=== PATIENT | male | born 1950 | race American Indian/Alaskan Native ===

== ENCOUNTER 2017-08-28 14:05 | Emergency (ER) | payer BC, MEDICARE ==
[2017-08-28 14:11] VITALS: BP 133/75; PULSE 75; RESP 18; TEMP 98.2; O2SAT 97
[2017-08-28 14:16] VITALS: BMI 27.3
--- NOTE | 2017-08-28 14:35 | ED PDOC ---
Arrival/HPI - General Chief Complaint: Trauma Time Seen by Provider: 08/28/17 14:21 Historian: Patient EM Caveat: Acuity of Condition - History of Present Illness Narrative History of Present Illness (Text): 08/28/17 14:31 Pt is a 66 yr old male with past medical history of seizures, taking Lamictal BID, presents tot the ED for a trip and fall injury earlier today whereby he hit his head, sustaining a cut above the right eyebrow. Denies LOC, seizure activity, nausea, vomiting, headache, neck or back pain, shortness of breath, limb pain, numbness or motor dysfunction, or any other complaints at this time. 08/28/17 14:35 Time/Duration: Prior to Arrival Symptom Onset: Sudden Symptom Course: Unchanged Quality: Aching Severity Level: 3 Activities at Onset: Light Context: Street Past Medical History - Provider Review Nursing Documentation Reviewed: Yes - Travel History Have you recently traveled outside [place] w/in the past 3 mons?: No - Past History Past History: No Previous - Infectious Disease Hx of Infectious Diseases: None - Tetanus Immunization Tetanus Immunization: Unknown - Cardiac Hx Hypertension: Yes - Pulmonary Hx Respiratory Disorders: No - Neurological Hx Seizures: Yes - HEENT Hx HEENT Disorder: No - Renal Hx Renal Disorder: No - Endocrine/Metabolic Hx Endocrine Disorders: No - Hematological/Oncological Hx Blood Disorders: No - Integumentary Hx Dermatological Disorder: No - Musculoskeletal/Rheumatological Hx Falls: No - Gastrointestinal Hx Gastrointestinal Disorders: No - Genitourinary/Gynecological Hx Genitourinary Disorders: No - Psychiatric Hx Psychophysiologic Disorder: No Hx Substance Use: No - Surgical History Hx Musculoskeletal Surgery: Yes (back surgery and ankle surgery) - Anesthesia Hx Anesthesia: Yes Hx Anesthesia Reactions: No Hx Malignant Hyperthermia: No - Suicidal Assessment Feels Threatened In Home Enviroment: No Family/Social History - Physician Review Nursing Documentation Reviewed: Yes Family/Social History: Unknown Family HX Smoking Status: Never Smoked Hx Alcohol Use: No Hx Substance Use: No Hx Substance Use Treatment: No Allergies/Home Meds Allergies/Adverse Reactions: Allergies No Known Allergies Allergy (Verified 08/28/17 14:20) Home Medications: Home Meds Medication Instructions Recorded Confirmed Aspirin 81 mg PO DAILY 07/24/14 08/28/17 Lamotrigine [Lamictal] 25 mg PO DAILY 07/24/14 08/28/17 Ramipril [Altace] 10 mg PO DAILY 07/24/14 08/28/17 Review of Systems - Review of Systems Systems not reviewed;Unavailable: Acuity of Condition Constitutional: Normal Eyes: Normal ENT: Normal Respiratory: Normal Cardiovascular: Normal Gastrointestinal: Normal Genitourinary Male: Normal Musculoskeletal: Normal Skin: Normal, Laceration (face), Other (scrapes on cheek and nose) Neurological: Normal. absent: Headache, Dizziness, Focal Weakness, Gait Changes , Speech Changes, SC, Facial Droop, DE, Disequilibrium, SE, Seizure, Other Endocrine: Normal Hemo/Lymphatic: Normal Psychiatric: Normal Physical Exam Vital Signs Reviewed: Yes Vital Signs Temp Pulse Resp BP Pulse Ox 08/28/17 14:10 98.2 F 75 18 133/75 97 Temperature: Afebrile Blood Pressure: Normal Pulse: Regular Respiratory Rate: Normal Appearance: Positive for: Well-Appearing, Non-Toxic, Comfortable Pain Distress: Mild Mental Status: Positive for: Alert and Oriented X 3 - Systems Exam Head: Present: Normocephalic, Laceration (right supraorbital above the brow, 2.5 cm in length, clean edges). No: Tenderness, Contusion Pupils: Present: PERRL Extroacular Muscles: Present: EOMI Conjunctiva: Present: Normal Mouth: Present: Moist Mucous Membranes Neck: Present: Normal Range of Motion Respiratory/Chest: Present: Clear to Auscultation, Good Air Exchange. No: Respiratory Distress, Accessory Muscle Use Cardiovascular: Present: Regular Rate and Rhythm, Normal S1, S2. No: Murmurs Back: Present: Normal Inspection Upper Extremity: Present: Normal Inspection. No: Cyanosis, Edema Lower Extremity: Present: Normal Inspection. No: Edema Neurological: Present: GCS=15, CN II-XII Intact, Speech Normal Skin: Present: Warm, Dry, Normal Color. No: Rashes Psychiatric: Present: Alert, Oriented x 3, Normal Insight, Normal Concentration Medical Decision Making ED Course and Treatment: 08/28/17 14:35 Impression Pt is a 66 yr old male with past medical history of seizures, taking Lamictal BID, presents tot the ED for a trip and fall injury earlier today whereby he hit his head, sustaining a cut above the right eyebrow. On exam, pt has a laceration to the right brow, 2.5 cm in length. Good motor and sensory function of cranial nerves (CN II to IX) assessed; no other findings Plan prep, irrigate and suture assess and dispo Progress Note Performed by the emergency provider Location: Right brow Length: 2.5 cm Description: "clean wound edges","no foreign bodies" Distal CMS: ~Normal.~ No deficits.~ Neurovascularly intact. Anesthesia: Lidocaine 1% 1cc Preparation: The wound was cleaned with NS. The area was prepped and draped in the usual sterile fashion.~ Exploration: ~ The wound was explored and no foreign bodies were found. Procedure: The wound was closed with 6.0 nylon.~ There was good approximation.~ In total, 3 were used. Post-Procedure: ~Good closure and hemostasis.~ The patient tolerated the procedure well and there were no complications.~ CSM remains intact.~ Post procedure dressing applied. DW pt wound care and return in 5 days for suture removal VSS - Medication Orders Current Medication Orders: Discontinued Medications Tetanus/Reduced Diphtheria/Acell Pertussis (Boostrix Vaccine Inj) 0.5 ml IM .ONCE ONE Stop: 08/28/17 14:41 Last Admin: 08/28/17 15:16 Dose: 0.5 ml [facility] Immunization Data Document 08/28/17 15:16 [place] (Rec: 08/28/17 15:16 [place] [id number]) Immunization Data Vaccine Information Sheet Given Yes Immunization Registry Document 08/28/17 15:16 [place] (Rec: 08/28/17 15:16 [place] [id number]) Immunization Registry Consent Date 08/28/17 Disposition/Present on Arrival - Present on Arrival Any Indicators Present on Arrival: Yes History of DVT/PE: No History of Uncontrolled Diabetes: No Urinary Catheter: No History of Decub. Ulcer: No History Surgical Site Infection Following: None - Disposition Have Diagnosis and Disposition been Completed?: Yes Diagnosis: Laceration, Abrasion head Disposition: HOME/ ROUTINE Disposition Time: 15:21 Patient Plan: Discharge Condition: GOOD Discharge Instructions (ExitCare): Wound Care (DC), Laceration Repair With Stitches (DC) Additional Instructions: Placido, thank you for letting us take care of you today. Your provider was KRISTINA Joe. You were treated for Laceration and abrasions of the face . The emergency medical care you received today was directed at your acute symptoms. If you were prescribed any medication, please fill it and take as directed. It may take several days for your symptoms to resolve. Return to the Emergency Department if your symptoms worsen, do not improve, or if you have any other problems PLEASE RETURN to the EMERGENCY DEPARTMENT IN 5 DAYS TO HAVE THE SUTURES REMOVED AND THE WOUND CHECKED. Please contact your doctor or call one of the physicians/clinics you have been referred to that are listed on the Patient Visit Information form that is included in your discharge packet. Bring any paperwork you were given at discharge with you along with any medications you are taking to your follow up visit. Our treatment cannot replace ongoing medical care by a primary care provider (PCP) outside of the emergency department. Thank you for allowing the [facility] team to be part of your care today. Referrals: Eli Pickering MD [Primary Care Provider] - Follow up with primary Forms: [employer] (Gambian)
[2017-08-28] MEDS ORDERED: TDAP Vaccine 0.5 mL Syr IM ONE (14:40)
== END 2017-08-28 15:42 | disposition home or self-care (01) ==
LOC: ED 14:05
DX: S01.111A Laceration without foreign body of right eyelid and periocular area, initial encounter (principal); W01.0XXA Fall on same level from slipping, tripping and stumbling without subsequent striking against object, initial encounter; Y92.89 Other specified places as the place of occurrence of the external cause; Z23 Encounter for immunization

== ENCOUNTER 2018-04-08 23:36 | Observation (INO) | payer MEDICARE ==
[2018-04-08 23:47] VITALS: BMI 27.7
[2018-04-08] MEDS ORDERED: Sodium Chloride 0.9% 1,000 ML IV STA (23:58)
--- NOTE | 2018-04-09 00:04 | ED PDOC ---
Arrival/HPI - General Chief Complaint: Syncope Time Seen by Provider: 04/08/18 23:39 Historian: Patient, EMS - History of Present Illness Narrative History of Present Illness (Text): 04/08/18 23:58 67 year old male, whose past medical history includes seizures, taking Lamictal BID, presents to the emergency department for evaluation, status post syncopal episode. Patient states he felt some stomach pain and thought he needed to go to the bathroom. Patient states upon arrival at the toilet, he was feeling weak and dizzy, and fell, hitting the toilet set on his cheek. Patient states he couldn't get up on his own, and his called EMS. Patient states after the fall he released his bowels in the form of diarrhea. Patient states he has been taking his Lamictal and has been seizure free for 3 years. Patient denies any chest pain, shortness of breath, fevers, chills, back pain, neck pain, or any other complaints. Time/Duration: Prior to Arrival Symptom Onset: Sudden Context: Home Past Medical History - Provider Review Nursing Documentation Reviewed: Yes - Past History Past History: No Previous - Infectious Disease Hx of Infectious Diseases: None - Tetanus Immunization Tetanus Immunization: Unknown - Cardiac Hx Hypertension: Yes - Pulmonary Hx Respiratory Disorders: No - Neurological Hx Seizures: Yes - HEENT Hx HEENT Disorder: No - Renal Hx Renal Disorder: No - Endocrine/Metabolic Hx Endocrine Disorders: No - Hematological/Oncological Hx Blood Disorders: No - Integumentary Hx Dermatological Disorder: No - Musculoskeletal/Rheumatological Hx Falls: No - Gastrointestinal Hx Gastrointestinal Disorders: No - Genitourinary/Gynecological Hx Genitourinary Disorders: No - Psychiatric Hx Psychophysiologic Disorder: No Hx Substance Use: No - Surgical History Hx Musculoskeletal Surgery: Yes (back surgery and ankle surgery) - Anesthesia Hx Anesthesia: Yes Hx Anesthesia Reactions: No Hx Malignant Hyperthermia: No - Suicidal Assessment Feels Threatened In Home Enviroment: No Family/Social History - Physician Review Nursing Documentation Reviewed: Yes Family/Social History: No Known Family HX Smoking Status: Never Smoked Hx Alcohol Use: No Hx Substance Use: No Hx Substance Use Treatment: No Allergies/Home Meds Allergies/Adverse Reactions: Allergies No Known Allergies Allergy (Verified 08/28/17 14:20) Home Medications: Home Meds Medication Instructions Recorded Confirmed Aspirin 81 mg PO DAILY 07/24/14 08/28/17 Lamotrigine [Lamictal] 25 mg PO DAILY 07/24/14 08/28/17 Ramipril [Altace] 10 mg PO DAILY 07/24/14 08/28/17 Review of Systems - Physician Review All systems were reviewed & negative as marked: Yes - Review of Systems Constitutional: absent: Fevers, Night Sweats Respiratory: absent: SOB Cardiovascular: absent: Chest Pain Gastrointestinal: Abdominal Pain, Diarrhea (post-fall), Nausea (prior to fall). absent: Vomiting Musculoskeletal: absent: Back Pain, Neck Pain Neurological: Dizziness (prior to fall) Physical Exam Vital Signs Reviewed: Yes Vital Signs Temp Pulse Resp BP Pulse Ox 04/08/18 23:46 97.6 F 72 18 119/61 98 Temperature: Afebrile Blood Pressure: Normal Pulse: Regular Respiratory Rate: Normal Appearance: Positive for: Well-Appearing, Non-Toxic, Comfortable Pain Distress: None Mental Status: Positive for: Alert and Oriented X 3 - Systems Exam Head: Present: Atraumatic, Normocephalic Pupils: Present: PERRL Extroacular Muscles: Present: EOMI Conjunctiva: Present: Normal Mouth: Present: Moist Mucous Membranes Neck: Present: Normal Range of Motion Respiratory/Chest: Present: Clear to Auscultation, Good Air Exchange. No: Respiratory Distress, Accessory Muscle Use Cardiovascular: Present: Regular Rate and Rhythm, Normal S1, S2. No: Murmurs Abdomen: No: Tenderness, Distention, Peritoneal Signs Back: Present: Normal Inspection Upper Extremity: Present: Normal Inspection. No: Cyanosis, Edema Lower Extremity: Present: Normal Inspection. No: Edema Neurological: Present: Speech Normal Skin: Present: Warm, Dry, Normal Color. No: Rashes Psychiatric: Present: Alert, Oriented x 3, Normal Insight, Normal Concentration Medical Decision Making ED Course and Treatment: 04/09/18 00:06 Impression: 67 year old male presents for evaluation status post dizziness and fall. Plan: -- CT Head -- Labs -- Urinalysis -- Reassess and disposition Prior Visits: Notes and results from previous visits were reviewed. Progress Notes: 04/09/18 01:30 Labs reviewed with slight anemia noted. CTH reveals large fluid cysts filled with CSF present within the cerebral parenchyma. Call placed to Dr. Myers(house physician). 04/09/18 01:42 After discussion of patient and review of chart, patient has seen Dr. Avalos(PCP) in the past. Spoke to Dr. Avalos who accepts patient onto his service and requests Dr. Marino Young(neurology) to be consulted on the case. - RAD Interpretation Narrative RAD Interpretations (Text): 04/09/18 01:12 CT Head CLINICAL HISTORY: Syncope and seizure. TECHNIQUE: Multiple axial CT images were obtained through the brain without IV contrast material. COMMENTS: Bilateral superior parietal extra-axial dilated CSF spaces/CSF containing cysts. Associated with focal cortical atrophy. There is normal configuration of sella turcica. There is no mass effect or midline shift. There is no evidence of hematoma formation. No hydrocephalus is present. The ventricles are symmetrical. No abnormal calcifications are present. There is diffuse age-appropriate cerebellar and cerebral atrophy with proportionally dilated ventricles and cortical sulci. There are bilateral periventricular and subcortical white matter hypolucencies compatible with mild chronic microvascular disease. Otherwise, no significant focal abnormalities are seen either in the posterior fossa or supratentorial compartment. Moderate chronic mucosal inflammatory changes of the maxillary, sphenoid sinuses and ethmoid air cells. Minimal secretions in the left renal sinus. IMPRESSION: 1. Age-appropriate cerebellar and cerebral atrophy. 2. Mild chronic microvascular disease. Bilateral superior parietal extra-axial dilated CSF spaces/CSF containing cysts. Associated with focal cortical atrophy. Chronic findings. 3. No evidence of acute intracranial pathology. Management Manager: Radiologist - Scribe Statement The provider has reviewed the documentation as recorded by the Virginia Godfrey Provider Scribe Attestation: All medical record entries made by the Scribe were at my direction and personally dictated by me. I have reviewed the chart and agree that the record accurately reflects my personal performance of the history, physical exam, medical decision making, and the department course for this patient. I have also personally directed, reviewed, and agree with the discharge instructions and disposition. Disposition/Present on Arrival - Present on Arrival Any Indicators Present on Arrival: No History of DVT/PE: No History of Uncontrolled Diabetes: No Urinary Catheter: No History of Decub. Ulcer: No History Surgical Site Infection Following: None - Disposition Have Diagnosis and Disposition been Completed?: Yes Diagnosis: Syncope Disposition: HOSPITALIZED Disposition Time: 01:30 Patient Plan: Observation Condition: STABLE Discharge Instructions (ExitCare): Syncope (ED) Forms: DG[employer] (Polish)
[2018-04-09 00:32] LABS: BASO # 0.03 K/mm3 (0.0-2.0); BASO % 0.3 % (0.0-3.0); EOS # 0.4 (0.0-0.7); EOS % 4.3 % (1.5-5.0); GRAN # 5.94 (1.4-6.5); GRAN % 64.4 % (50.0-68.0); HEMOGLOBIN 12.9 g/dL (14.0-18.0); LYMPH # 2.3 (1.2-3.4); LYMPH % 25.2 % (22.0-35.0); MEAN CELL VOLUME 96.4 fl (80.0-105.0); MEAN CORPUSCULAR HEMOGLOBIN 31.2 pg (25.0-35.0); MEAN CORPUSCULAR HGB CONC 32.4 g/dl (31.0-37.0); MEAN PLATELET VOLUME 8.8 fl (7.0-11.0); MONO # 0.5 (0.1-0.6); MONO % 5.8 % (1.0-6.0); RBC 4.13 10^6/uL (3.5-6.1); RED CELL DISTRIBUTION WIDTH 12.3 % (11.5-14.5); WHITE BLOOD COUNT 9.2 10^3/uL (4.5-11.0)
[2018-04-09 00:43] LABS: ALB/GLOB RATIO 1.2 (1.1-1.8); ALBUMIN 4.3 g/dL (3.0-4.8); ALT/SGPT 26 U/L (7-56); AST/SGOT 28 U/L (17-59); BLOOD UREA NITROGEN 19 mg/dL (7-21); CALCIUM 9.6 mg/dL (8.4-10.5); GFR NON-AFRICAN AMERICAN > 60
[2018-04-09 02:11] LABS: URINE BILIRUBIN NEGATIVE (NEGATIVE); URINE BLOOD TRACE-INTACT (NEGATIVE); URINE GLUCOSE (UA) NEGATIVE (NEGATIVE); URINE LEUKOCYTE ESTERASE NEGATIVE Leu/uL (NEGATIVE); URINE PROTEIN TRACE mg/dL (<30 mg/dL)
[2018-04-09 02:12] LABS: URINE APPEARANCE CLEAR (CLEAR)
[2018-04-09 02:25] LABS: BARBITURATES, UR NEGATIVE (NEGATIVE); BENZODIAZEPINES, UR NEGATIVE (NEGATIVE); OPIATES, UR NEGATIVE (NEGATIVE); PHENCYCLIDINE, UR NEGATIVE (NEGATIVE)
[2018-04-09 03:12] VITALS: RESP 20
[2018-04-09] MEDS ORDERED: Influenza Vaccine 60 mcg/0.5 mL SYR (4YR UP) IM ONE (03:12)
[2018-04-09] MEDS ORDERED: Pneumococcal 23-Valent Vaccine IM ONE (03:12)
[2018-04-09 06:58] VITALS: BP 109/66; TEMP 97.9; O2SAT 97
--- NOTE | 2018-04-09 07:37 | CP.PCM.HP ---
<James Lewis - Last Filed: 04/09/18 09:52> History of Present Illness - History of Present Illness History of Present Illness: James Lewis PGY2 IM H&P Note for Dr. Daugherty cc: post-syncopal episode Mr. Nair is a 67 year old AAM with a PMH of seizure disorder on Lamictal (last seizure 3 years ago) and HTN who presents to the ED post-syncopal episode. Patient states that he was feeling nauseous and was walking into the bathroom when he felt dizzy, saw lights and passed out, hitting his jaw into the toilet seat. During his syncopal episode, he lost control of his bowels and had a diarrheal episode. His , who was home, was present at home witnessed him post-fall. There is no ED record of the 's recollection, but the patient states that he spoke with his , and that he only had LOC for a few minutes, but did not have any jerking movements but did lose control of his bowels with a diarrheal episode. The patient states that these symptoms are note similar to his symptoms prior to his seizures, which usually included eye pressure. The patient has been seizure free for 3 years and has been on an unchanged dose of lamictal for that time. He has not had any dizziness, falls or unsteady gait, but did have abdominal cramps and another episode of diarrhea. He states that he had a sandwich from [employer] yesterday and that was the only different part of his diet recently. He currently denies any chest pain, abdominal pain, nausea/vomiting, weakness, headache, changes in vision/hearing, or unsteady gait. 12-point ROS was reviewed and is otherwise unremarkable. In ED, FS is 101. BP is stable. CT Head showed b/l superior parietal extra-axial dilated CSF spaces/CSF containing cysts w/ associated focal cortical atrophy; prior chart review reveals unchanged from 2015. The CT was reviewed personally by me and is awaiting final read by AM radiologist. PMD: Dr. Pickering Neurology: Dr. Ulrich PMH: as above PSH: back and ankle surgery Meds: as per JUL, reviewed Allergies: NKDA SHx: denies tobacco, EtOH or drug use FHx: DM2 and HTN Present on Admission - Present on Admission Any Indicators Present on Admission: No Review of Systems - Review of Systems All systems: reviewed and no additional remarkable complaints except (as per HPI) Past Patient History - Infectious Disease Hx of Infectious Diseases: None - Tetanus Immunizations Tetanus Immunization: Unknown - Past Medical History & Family History Past Medical History?: Yes Past Family History: Reviewed and not pertinent - Past Social History Smoking Status: Never Smoked Alcohol: None Drugs: Denies Home Situation {Lives}: With Family - CARDIAC Hx Cardiac Disorders: Yes Hx Hypertension: Yes - PULMONARY Hx Respiratory Disorders: No - NEUROLOGICAL Hx Seizures: Yes (on lamictal; last seizure 3 years ago) - HEENT Hx HEENT Problems: No - RENAL Hx Chronic Kidney Disease: No - ENDOCRINE/METABOLIC Hx Endocrine Disorders: No - HEMATOLOGICAL/ONCOLOGICAL Hx Blood Disorders: No - INTEGUMENTARY Hx Dermatological Problems: No - MUSCULOSKELETAL/RHEUMATOLOGICAL Hx Falls: Yes - GASTROINTESTINAL Hx Gastrointestinal Disorders: No - GENITOURINARY/GYNECOLOGICAL Hx Genitourinary Disorders: No - PSYCHIATRIC Hx Psychophysiologic Disorder: No - SURGICAL HISTORY Hx Musculoskeletal Surgery: Yes (back surgery and ankle surgery) - ANESTHESIA Hx Anesthesia: Yes Hx Anesthesia Reactions: No Hx Malignant Hyperthermia: No Meds Allergies/Adverse Reactions: Allergies Allergy/AdvReac Type Severity Reaction Status Date / Time No Known Allergies Allergy Verified 08/28/17 14:20 Physical Exam - Constitutional Appears: Well, Non-toxic, No Acute Distress - Head Exam Head Exam: ATRAUMATIC, NORMAL INSPECTION, NORMOCEPHALIC - Eye Exam Eye Exam: EOMI, Normal appearance, PERRL. absent: Periorbital swelling, Periorbital tenderness - ENT Exam ENT Exam: Mucous Membranes Moist, Normal External Ear Exam, Normal Oropharynx - Neck Exam Neck exam: Positive for: Full Rom, Normal Inspection. Negative for: Tenderness - Respiratory Exam Respiratory Exam: NORMAL BREATHING PATTERN. absent: Rales, Rhonchi, Wheezes, Respiratory Distress - Cardiovascular Exam Cardiovascular Exam: RRR, +S1, +S2. absent: JVD, Systolic Murmur - GI/Abdominal Exam GI & Abdominal Exam: Normal Bowel Sounds, Soft. absent: Distended, Tenderness - Exam Exam: absent: Bladder Distension - Extremities Exam Extremities exam: Positive for: full ROM, normal inspection. Negative for: joint swelling, pedal edema, tenderness - Back Exam Back exam: NORMAL INSPECTION. absent: tenderness - Neurological Exam Neurological exam: Alert, CN II-XII Intact, Oriented x3 Additional comments: no motor sensory deficits - Psychiatric Exam Psychiatric exam: Normal Affect, Normal Mood - Skin Skin Exam: Normal Color, Warm Results - Vital Signs Recent Vital Signs: Last Vital Signs Temp 97.9 F 04/09/18 06:00 Pulse 67 04/09/18 06:00 Resp 20 04/09/18 06:00 BP 109/66 04/09/18 06:00 Pulse Ox 97 04/09/18 06:00 - Labs Result Diagrams: 04/09/18 00:05 04/09/18 00:05 Labs: Laboratory Results - last 24 hr 04/09/18 04/09/18 04/09/18 00:05 00:05 00:05 WBC 9.2 RBC 4.13 Hgb 12.9 L Hct 39.8 L MCV 96.4 MCH 31.2 MCHC 32.4 RDW 12.3 Plt Count 273 MPV 8.8 Gran % 64.4 Lymph % (Auto) 25.2 [place] % (Auto) 5.8 Eos % (Auto) 4.3 Baso % (Auto) 0.3 Gran # 5.94 Lymph # (Auto) 2.3 [place] # (Auto) 0.5 Eos # (Auto) 0.4 Baso # (Auto) 0.03 Sodium 142 Potassium 4.1 Chloride 102 Carbon Dioxide 29 Anion Gap 15 BUN 19 Creatinine 1.2 Est GFR ( Amer) > 60 Est GFR (Non-Af Amer) > 60 Random Glucose 101 Calcium 9.6 Magnesium 2.2 Total Bilirubin 0.6 AST 28 ALT 26 Alkaline Phosphatase 113 Troponin I Total Protein 7.9 Albumin 4.3 Globulin 3.6 Albumin/Globulin Ratio 1.2 Urine Color Urine Appearance Urine pH Ur Specific [place] Urine Protein Urine Glucose (UA) Urine Ketones Urine Blood Urine Nitrate Urine Bilirubin Urine Urobilinogen Ur Leukocyte Esterase Urine RBC Urine WBC Ur Epithelial Cells Urine Opiates Screen Urine Methadone Screen Ur Barbiturates Screen Ur Phencyclidine Scrn Ur Amphetamines Screen U Benzodiazepines Scrn U Oth Cocaine Metabols U Cannabinoids Screen Alcohol, Quantitative < 10 04/09/18 04/09/18 04/09/18 00:05 01:53 01:53 WBC RBC Hgb Hct MCV MCH MCHC RDW Plt Count MPV Gran % Lymph % (Auto) [place] % (Auto) Eos % (Auto) Baso % (Auto) Gran # Lymph # (Auto) [place] # (Auto) Eos # (Auto) Baso # (Auto) Sodium Potassium Chloride Carbon Dioxide Anion Gap BUN Creatinine Est GFR ( Amer) Est GFR (Non-Af Amer) Random Glucose Calcium Magnesium Total Bilirubin AST ALT Alkaline Phosphatase Troponin I < 0.01 Total Protein Albumin Globulin Albumin/Globulin Ratio Urine Color yellow Urine Appearance Clear Urine pH 6.0 Ur Specific [place] 1.025 Urine Protein Trace H Urine Glucose (UA) Negative Urine Ketones Negative Urine Blood Trace-intact H Urine Nitrate Negative Urine Bilirubin Negative Urine Urobilinogen 1.0 H Ur Leukocyte Esterase Negative Urine RBC 5 - 10 Urine WBC 2 - 5 Ur Epithelial Cells 4 - 5 Urine Opiates Screen Negative Urine Methadone Screen Negative Ur Barbiturates Screen Negative Ur Phencyclidine Scrn Negative Ur Amphetamines Screen Negative U Benzodiazepines Scrn Negative U Oth Cocaine Metabols Negative U Cannabinoids Screen Negative Alcohol, Quantitative Assessment & Plan - Assessment and Plan (Free Text) Assessment: 67 year old AAM with a PMH of seizure disorder on Lamictal (last seizure 3 years ago) and HTN who presents to the ED post-syncopal episode. Patient had seizure- like activity by loss of bowel control which could be food-related but could be from an organic cause of seizure. Syncope otherwise could be due to vasovagal episode. Patient has no history of heart disease so cardiogenic cause is unlikely. Plan: - will observe on remote telemetry unit - EKG ordered - MRI brain ordered w/o contrast - EEG ordered - Lipid panel, A1C and TSH ordered - Lamictal level ordered - PT Eval ordered - cont Lamictal home dose for now, will adjust based on level - cont ASA and Ramipril - monitor VS - Orthostatic VS ordered - Neurology consulted, recs appreciated - seizure precautions - HHD - further recs per Dr. Daugherty Case was reviewed and discussed with attending, Dr. Dat Lewis PGY2 <Dario Daugherty S - Last Filed: 04/10/18 15:07> Results - Vital Signs Recent Vital Signs: Last Vital Signs Temp 97.9 F 04/09/18 06:00 Pulse 74 04/09/18 10:00 Resp 20 04/09/18 06:00 BP 109/66 04/09/18 06:00 Pulse Ox 97 04/09/18 06:00 - Labs Result Diagrams: 04/09/18 00:05 04/09/18 00:05 Labs: Laboratory Results - last 24 hr 04/09/18 08:00 Hemoglobin A1c 4.7 Assessment & Plan - Assessment and Plan (Free Text) Plan: Pt seen and examined. I have reviewed the note of the medical leader and agree with it. I have discussed the assessment and plan with the resident. I have reviewed the patient's labs and medications. Pt with syncope. It is difficult to say if the pt had Sz. It may be caused by a vasovagal event in the bathroom. He is on Lamictal. I will get Neurology to evaluate the pt. MRI has been ordered as well as an EEG. Will await neuro evaluation. I spoke to Dr Pickering (PMD). He iwll continue with Ramipril for his HTN. He has no pain.
[2018-04-09 09:14] LABS: HDL CHOLESTEROL 38 mg/dL (29-60)
--- NOTE | 2018-04-09 09:22 | CT ---
Date of service: 04/09/2018 PROCEDURE: CT HEAD WITHOUT CONTRAST. HISTORY: syncope/seizure COMPARISON: None available. TECHNIQUE: Axial computed tomography images were obtained through the head/brain without intravenous contrast. Radiation dose: Total exam DLP = 856.86 mGy-cm. This CT exam was performed using one or more of the following dose reduction techniques: Automated exposure control, adjustment of the mA and/or kV according to patient size, and/or use of iterative reconstruction technique. FINDINGS: HEMORRHAGE: No intracranial hemorrhage. BRAIN: No mass effect or edema. No atrophy or chronic microvascular ischemic changes. 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 CALVARIUM: Unremarkable. PARANASAL SINUSES: Unremarkable as visualized. No significant inflammatory changes. MASTOID AIR CELLS: Unremarkable as visualized. No inflammatory changes. OTHER FINDINGS: None. IMPRESSION: No acute hemorrhage.
[2018-04-09 09:24] LABS: LDL CHOLESTEROL 102 mg/dL (0-129)
[2018-04-09] MEDS ORDERED: Non Formulary Medication (Aspirin [Aspirin] 81 MG) PO SCH (10:00)
[2018-04-09 10:31] VITALS: PULSE 74
--- NOTE | 2018-04-09 12:35 | CP.PCM.DIS ---
<James Lewis - Last Filed: 04/09/18 22:05> Provider - Provider Date of Admission: 04/09/18 01:43 Attending physician: Dario Daugherty MD Time Spent in preparation of Discharge (in minutes): 35 Diagnosis - Discharge Diagnosis (1) Syncope Status: Acute Hospital Course - Lab Results Lab Results: Most Recent Lab Values WBC 9.2 10^3/uL (4.5-11.0) 04/09/18 00:05 RBC 4.13 10^6/uL (3.5-6.1) 04/09/18 00:05 Hgb 12.9 g/dL (14.0-18.0) L 04/09/18 00:05 Hct 39.8 % (42.0-52.0) L 04/09/18 00:05 MCV 96.4 fl (80.0-105.0) 04/09/18 00:05 MCH 31.2 pg (25.0-35.0) 04/09/18 00:05 MCHC 32.4 g/dl (31.0-37.0) 04/09/18 00:05 RDW 12.3 % (11.5-14.5) 04/09/18 00:05 Plt Count 273 10^3/uL (120.0-450.0) 04/09/18 00:05 MPV 8.8 fl (7.0-11.0) 04/09/18 00:05 Gran % 64.4 % (50.0-68.0) 04/09/18 00:05 Lymph % (Auto) 25.2 % (22.0-35.0) 04/09/18 00:05 [place] % (Auto) 5.8 % (1.0-6.0) 04/09/18 00:05 Eos % (Auto) 4.3 % (1.5-5.0) 04/09/18 00:05 Baso % (Auto) 0.3 % (0.0-3.0) 04/09/18 00:05 Gran # 5.94 (1.4-6.5) 04/09/18 00:05 Lymph # (Auto) 2.3 (1.2-3.4) 04/09/18 00:05 [place] # (Auto) 0.5 (0.1-0.6) 04/09/18 00:05 Eos # (Auto) 0.4 (0.0-0.7) 04/09/18 00:05 Baso # (Auto) 0.03 K/mm3 (0.0-2.0) 04/09/18 00:05 Sodium 142 mmol/L (132-148) 04/09/18 00:05 Potassium 4.1 mmol/L (3.6-5.0) 04/09/18 00:05 Chloride 102 mmol/L (98-107) 04/09/18 00:05 Carbon Dioxide 29 mmol/L (21-33) 04/09/18 00:05 Anion Gap 15 (10-20) 04/09/18 00:05 BUN 19 mg/dL (7-21) 04/09/18 00:05 Creatinine 1.2 mg/dl (0.8-1.5) 04/09/18 00:05 Est GFR ( Amer) > 60 04/09/18 00:05 Est GFR (Non-Af Amer) > 60 04/09/18 00:05 POC Glucose (mg/dL) 97 mg/dL (65-110) 04/08/18 23:58 Random Glucose 101 mg/dL (70-110) 04/09/18 00:05 Calcium 9.6 mg/dL (8.4-10.5) 04/09/18 00:05 Magnesium 2.2 mg/dL (1.7-2.2) 04/09/18 00:05 Total Bilirubin 0.6 mg/dL (0.2-1.3) 04/09/18 00:05 AST 28 U/L (17-59) 04/09/18 00:05 ALT 26 U/L (7-56) 04/09/18 00:05 Alkaline Phosphatase 113 U/L (38-126) 04/09/18 00:05 Troponin I < 0.01 ng/mL 04/09/18 00:05 Total Protein 7.9 g/dL (5.8-8.3) 04/09/18 00:05 Albumin 4.3 g/dL (3.0-4.8) 04/09/18 00:05 Globulin 3.6 gm/dL 04/09/18 00:05 Albumin/Globulin Ratio 1.2 (1.1-1.8) 04/09/18 00:05 Triglycerides 34 mg/dL (35-160) L 04/09/18 08:00 Cholesterol 149 mg/dL (130-200) 04/09/18 08:00 LDL Cholesterol Direct 102 mg/dL (0-129) 04/09/18 08:00 HDL Cholesterol 38 mg/dL (29-60) 04/09/18 08:00 TSH 3rd Generation 2.43 mIU/mL (0.46-4.68) 04/09/18 08:00 Urine Color yellow (YELLOW) 04/09/18 01:53 Urine Appearance Clear (CLEAR) 04/09/18 01:53 Urine pH 6.0 (4.7-8.0) 04/09/18 01:53 Ur Specific [place] 1.025 (1.005-1.035) 04/09/18 01:53 Urine Protein Trace mg/dL (<30 mg/dL) H 04/09/18 01:53 Urine Glucose (UA) Negative mg/dL (NEGATIVE) 04/09/18 01:53 Urine Ketones Negative mg/dL (NEGATIVE) 04/09/18 01:53 Urine Blood Trace-intact (NEGATIVE) H 04/09/18 01:53 Urine Nitrate Negative (NEGATIVE) 04/09/18 01:53 Urine Bilirubin Negative (NEGATIVE) 04/09/18 01:53 Urine Urobilinogen 1.0 E.U./dL (<1 E.U./dL) H 04/09/18 01:53 Ur Leukocyte Esterase Negative Matthew/uL (NEGATIVE) 04/09/18 01:53 Urine RBC 5 - 10 /hpf (0-2) 04/09/18 01:53 Urine WBC 2 - 5 /hpf (0-6) 04/09/18 01:53 Ur Epithelial Cells 4 - 5 /hpf (0-5) 04/09/18 01:53 Urine Opiates Screen Negative (NEGATIVE) 04/09/18 01:53 Urine Methadone Screen Negative (NEGATIVE) 04/09/18 01:53 Ur Barbiturates Screen Negative (NEGATIVE) 04/09/18 01:53 Ur Phencyclidine Scrn Negative (NEGATIVE) 04/09/18 01:53 Ur Amphetamines Screen Negative (NEGATIVE) 04/09/18 01:53 U Benzodiazepines Scrn Negative (NEGATIVE) 04/09/18 01:53 U Oth Cocaine Metabols Negative (NEGATIVE) 04/09/18 01:53 U Cannabinoids Screen Negative (NEGATIVE) 04/09/18 01:53 Alcohol, Quantitative < 10 mg/dL (0-10) 04/09/18 00:05 - Hospital Course Hospital Course: 67 year old AAM with a PMH of seizure disorder on Lamictal (last seizure 3 years ago) and HTN who was admitted for observation for a post-syncopal episode. Patient states that he was feeling nauseous and was walking into the bathroom when he felt dizzy, saw lights and passed out, hitting his jaw into the toilet seat. During his syncopal episode, he lost control of his bowels and had a diarrheal episode. The patient had LOC for a few minutes and regained it without any following confusion. Patient had another episode of diarrhea in the hospital and only then felt relief from abdominal cramping, which he attributes to [employer] sandwich. 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 I confirmed Lamictal dose w/ Dr. Ulrich's office and they stated it was 150mg BID. EEG was ordered and was normal. Patient received fluids and was asymptomatic in the morning that I saw him, and felt much better. HE was ambulating without any difficult, and had no other syncopal episodes. Neurology was consulted and their impression was that it was a vasovagal syncope w/ possible syncopal convulsion. I personally spoke with Dr. Young, who recommended for the patient to continue his current Lamictal dose and follow-up with Dr. Ulrich for further workup. I spoke with the patient and his in person and explained to them the plan and they understood. Script was provided for Lamictal 150mg tabs instead of the 25mg tabs patient had for convenience. Patient will continue Lamictal 150mg BID and f/u Dr. Ulrich and PMD within 2 weeks. PT evaluated the patient and he has a wide based gait (Chronic) but otherwise ambulates well w/ RW. Patient will be discharged home. Discharge Exam - Head Exam Head Exam: ATRAUMATIC, NORMAL INSPECTION, NORMOCEPHALIC - Eye Exam Eye Exam: EOMI, Normal appearance, PERRL - ENT Exam ENT Exam: Mucous Membranes Moist, Normal Oropharynx - Neck Exam Neck exam: Full Rom, Normal Inspection - Respiratory Exam Respiratory Exam: NORMAL BREATHING PATTERN. absent: Rales, Rhonchi, Wheezes, Respiratory Distress - Cardiovascular Exam Cardiovascular Exam: RRR, +S1, +S2. absent: JVD, Systolic Murmur - GI/Abdominal Exam GI & Abdominal Exam: Normal Bowel Sounds, Soft. absent: Distended, Tenderness - Extremities Exam Extremities exam: full ROM, normal inspection, pedal pulses present - Back Exam Back exam: NORMAL INSPECTION - Neurological Exam Neurological exam: Alert, CN II-XII Intact, Oriented x3 Additional comments: no dysmetria noted - Psychiatric Exam Psychiatric exam: Normal Affect, Normal Mood - Skin Skin Exam: Normal Color, Warm Discharge Plan - Discharge Medications Prescriptions: Lamotrigine [Lamictal] 150 mg PO BID #60 tablet - Follow Up Plan Condition: STABLE Disposition: HOME/ ROUTINE Instructions: Syncope (Fainting) (DC), Vasovagal Response (DC), Lamotrigine Additional Instructions: - please take Lamictal 150mg TWICE DAILY - please follow-up with Dr. Ulrich within 1 week for EEG and medication adjustment - please continue your prior home meds Referrals: Nicanor Ulrich MD [Staff Provider] - Eli Pickering MD [Family Provider] - <Dario Daugherty - Last Filed: 04/10/18 08:18> Provider - Provider Date of Admission: 04/09/18 01:43 Attending physician: Dario Daugherty MD Hospital Course - Lab Results Lab Results: Most Recent Lab Values WBC 9.2 10^3/uL (4.5-11.0) 04/09/18 00:05 RBC 4.13 10^6/uL (3.5-6.1) 04/09/18 00:05 Hgb 12.9 g/dL (14.0-18.0) L 04/09/18 00:05 Hct 39.8 % (42.0-52.0) L 04/09/18 00:05 MCV 96.4 fl (80.0-105.0) 04/09/18 00:05 MCH 31.2 pg (25.0-35.0) 04/09/18 00:05 MCHC 32.4 g/dl (31.0-37.0) 04/09/18 00:05 RDW 12.3 % (11.5-14.5) 04/09/18 00:05 Plt Count 273 10^3/uL (120.0-450.0) 04/09/18 00:05 MPV 8.8 fl (7.0-11.0) 04/09/18 00:05 Gran % 64.4 % (50.0-68.0) 04/09/18 00:05 Lymph % (Auto) 25.2 % (22.0-35.0) 04/09/18 00:05 [place] % (Auto) 5.8 % (1.0-6.0) 04/09/18 00:05 Eos % (Auto) 4.3 % (1.5-5.0) 04/09/18 00:05 Baso % (Auto) 0.3 % (0.0-3.0) 04/09/18 00:05 Gran # 5.94 (1.4-6.5) 04/09/18 00:05 Lymph # (Auto) 2.3 (1.2-3.4) 04/09/18 00:05 [place] # (Auto) 0.5 (0.1-0.6) 04/09/18 00:05 Eos # (Auto) 0.4 (0.0-0.7) 04/09/18 00:05 Baso # (Auto) 0.03 K/mm3 (0.0-2.0) 04/09/18 00:05 Sodium 142 mmol/L (132-148) 04/09/18 00:05 Potassium 4.1 mmol/L (3.6-5.0) 04/09/18 00:05 Chloride 102 mmol/L (98-107) 04/09/18 00:05 Carbon Dioxide 29 mmol/L (21-33) 04/09/18 00:05 Anion Gap 15 (10-20) 04/09/18 00:05 BUN 19 mg/dL (7-21) 04/09/18 00:05 Creatinine 1.2 mg/dl (0.8-1.5) 04/09/18 00:05 Est GFR ( Amer) > 60 04/09/18 00:05 Est GFR (Non-Af Amer) > 60 04/09/18 00:05 POC Glucose (mg/dL) 97 mg/dL (65-110) 04/08/18 23:58 Random Glucose 101 mg/dL (70-110) 04/09/18 00:05 Hemoglobin A1c 4.7 % (4.2-6.5) 04/09/18 08:00 Calcium 9.6 mg/dL (8.4-10.5) 04/09/18 00:05 Magnesium 2.2 mg/dL (1.7-2.2) 04/09/18 00:05 Total Bilirubin 0.6 mg/dL (0.2-1.3) 04/09/18 00:05 AST 28 U/L (17-59) 04/09/18 00:05 ALT 26 U/L (7-56) 04/09/18 00:05 Alkaline Phosphatase 113 U/L (38-126) 04/09/18 00:05 Troponin I < 0.01 ng/mL 04/09/18 00:05 Total Protein 7.9 g/dL (5.8-8.3) 04/09/18 00:05 Albumin 4.3 g/dL (3.0-4.8) 04/09/18 00:05 Globulin 3.6 gm/dL 04/09/18 00:05 Albumin/Globulin Ratio 1.2 (1.1-1.8) 04/09/18 00:05 Triglycerides 34 mg/dL (35-160) L 04/09/18 08:00 Cholesterol 149 mg/dL (130-200) 04/09/18 08:00 LDL Cholesterol Direct 102 mg/dL (0-129) 04/09/18 08:00 HDL Cholesterol 38 mg/dL (29-60) 04/09/18 08:00 TSH 3rd Generation 2.43 mIU/mL (0.46-4.68) 04/09/18 08:00 Urine Color yellow (YELLOW) 04/09/18 01:53 Urine Appearance Clear (CLEAR) 04/09/18 01:53 Urine pH 6.0 (4.7-8.0) 04/09/18 01:53 Ur Specific [place] 1.025 (1.005-1.035) 04/09/18 01:53 Urine Protein Trace mg/dL (<30 mg/dL) H 04/09/18 01:53 Urine Glucose (UA) Negative mg/dL (NEGATIVE) 04/09/18 01:53 Urine Ketones Negative mg/dL (NEGATIVE) 04/09/18 01:53 Urine Blood Trace-intact (NEGATIVE) H 04/09/18 01:53 Urine Nitrate Negative (NEGATIVE) 04/09/18 01:53 Urine Bilirubin Negative (NEGATIVE) 04/09/18 01:53 Urine Urobilinogen 1.0 E.U./dL (<1 E.U./dL) H 04/09/18 01:53 Ur Leukocyte Esterase Negative Matthew/uL (NEGATIVE) 04/09/18 01:53 Urine RBC 5 - 10 /hpf (0-2) 04/09/18 01:53 Urine WBC 2 - 5 /hpf (0-6) 04/09/18 01:53 Ur Epithelial Cells 4 - 5 /hpf (0-5) 04/09/18 01:53 Urine Opiates Screen Negative (NEGATIVE) 04/09/18 01:53 Urine Methadone Screen Negative (NEGATIVE) 04/09/18 01:53 Ur Barbiturates Screen Negative (NEGATIVE) 04/09/18 01:53 Ur Phencyclidine Scrn Negative (NEGATIVE) 04/09/18 01:53 Ur Amphetamines Screen Negative (NEGATIVE) 04/09/18 01:53 U Benzodiazepines Scrn Negative (NEGATIVE) 04/09/18 01:53 U Oth Cocaine Metabols Negative (NEGATIVE) 04/09/18 01:53 U Cannabinoids Screen Negative (NEGATIVE) 04/09/18 01:53 Alcohol, Quantitative < 10 mg/dL (0-10) 04/09/18 00:05 - Hospital Course Hospital Course: Pt seen and examined. I have reviewed the note of the medical lab technologist and agree with it. I have discussed the assessment and plan with the resident. I have reviewed the patient's labs and medications. Pt with syncope but possible Sz. Pt does have a Sz history. Will get Neuro to evaluate the pt. He was having diz ziness. I did speak to PMD (Dr Pickering). Pt follows with Dr Ulrich his neurologist. Pt will f/u with Neurology.
--- NOTE | 2018-04-09 13:08 | MRI ---
Date of service: 04/09/2018 PROCEDURE: MRI BRAIN WITHOUT CONTRAST HISTORY: syncope, seizure-like activity COMPARISON: 12/20/2014 TECHNIQUE: Multiplanar, multisequence MR images of the brain were obtained without intravenous contrast enhancement. FINDINGS: HEMORRHAGE: None DWI: No evidence of an acute or early subacute infarction. BRAIN PARENCHYMA: No mass effect or edema. 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 These may communicate with the lateral ventricles.. The finding is unchanged VENTRICLES: Unremarkable. No hydrocephalus. CRANIUM: Unremarkable. ORBITS: Grossly unremarkable. PARANASAL SINUSES/MASTOIDS: Clear VASCULAR SYSTEM: Skull base flow voids intact. OTHER FINDINGS: There is a 7 mm lesion on the left side of the pituitary that was not present on the previous study. This most likely represents a pituitary adenoma. 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 These may communicate with the lateral ventricles.. The finding is unchanged There is a 7 mm lesion on the left side of the pituitary that was not present on the previous study. This most likely represents a pituitary adenoma.
--- NOTE | 2018-04-09 13:49 | PCM.EEG ---
Electroencephalogram Report - Electroencephalogram Report Procedure Date: 04/08/18 Medication: Lamictal ASA Interpretation: . Technical Information: This was a 16-channel EEG, 1-channel EKG , performed using an [employer] machine., electrodes were applied according to the 10/20 international placement system, impedances were less than 5 K Ohm. Start 11;27 AM End; 12;15 PM Total 47 minutes Clinical Information: This EEG was performed on a 66 y/o man with seizures. EEG Detail: During resting wakefulness there was a symmetric posterior dominant rhythm at 8 to 9 Hz, 30-50 uV, which was reactive to eye opening and closing. Drowsiness was associated with fragmentation of the posterior dominant rhythm and with slow roving eye movements seen at 11;59 Sleep was not seen. Hyperventilation was performed as well as Photic stimulation and there were no changes in the record. ECG was associated with a normal sinus rhythm. Impression: This is a normal awake and drowsy electroencephalogram.
--- NOTE | 2018-04-09 16:15 | CON ---
DATE: 04/09/2018 CHIEF COMPLAINT: Syncope and seizure. 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 He sees Dr. Ulrich for his underlying seizures, who mentioned that he was walking to the bathroom when he felt dizzy, saw some lights and passed out, hit his jaw in the toilet seat. During the syncopal event, he lost his bowels and had diarrheal episode prior as well. He noticed with some questionable few jerk-like movements, but no postictal phenomena. He said this is not usually like the seizures that he has, seems most likely a syncopal convulsion from vasovagal affect. 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 Also, a 7 mm most likely left-sided pituitary adenoma. Incidentally noted. Currently, he is stable. He is on his Lamictal. He will follow up with Dr. Ulrich as an outpatient. PAST MEDICAL HISTORY: As above. SOCIAL HISTORY: No illicit drug use, smoking, or EtOH abuse. FAMILY HISTORY: Noncontributory. MEDICATIONS: Reviewed by nurses' reconciliation sheet. REVIEW OF SYSTEMS: A 14-point review of systems is negative except as per the HPI. PHYSICAL EXAMINATION: VITAL SIGNS: Temperature 97.9, pulse rate of 67, blood pressure 109/66, respiratory rate 20, oxygen saturation 97% on room air. GENERAL: The patient is sitting up in bed, in no acute distress. HEENT: Atraumatic, normocephalic. PERRLA. Extraocular muscles intact. NECK: Supple. No JVD. No adenopathy noted. LUNGS: Clear to auscultation. No adventitious sounds. HEART: S1 and S2. Normal rate and rhythm. No murmurs, rubs or gallops. ABDOMEN: Soft, nontender and nondistended. Bowel sounds are present. EXTREMITIES: No clubbing. No cyanosis. Peripheral pulses 2+ felt bilaterally. NEUROLOGIC: The patient is alert and oriented to person, place, month, and year. Speech is fluent without any errors. Cranial nerves II through XII are intact. Motor Exam: Moves all extremities equally. Toes are downgoing bilaterally. Sensory exam: Light touch, pinprick, proprioception and vibration are intact. DTRs are 2+ throughout. Coordination: [id number] intact. No dysmetria noted. LABORATORY DATA: Sodium is 142, potassium 4.1, chloride 102, carbon dioxide 29, BUN of 19, creatinine of 1.2, random glucose 101. IMPRESSION AND PLAN: Syncope is most likely vasovagal in nature causing possible syncopal convulsion rather than a seizure. At this time, continue with his home dose of Lamictal and consult with his neurologist, Dr. Ulrich. MRI of the brain showed some porencephalic cyst, which is chronic in nature and a small pituitary adenoma in the left; otherwise, no acute intracranial amorality is seen. The patient is clinically stable. Vaibhav Young MD
--- NOTE | 2018-04-09 18:55 | CARD ---
APPROVED REPORT Date of service: 04/08/2018 EKG Measurement Heart [id number] <Conclusion> Normal sinus rhythm Normal ECG
--- NOTE | 2018-04-09 19:01 | CARD ---
APPROVED REPORT Date of service: 04/09/2018 EKG Measurement Heart [id number] [place] [id number] <Conclusion> Normal sinus rhythm Moderate voltage criteria for LVH, may be normal variant Borderline ECG
== END 2018-04-09 17:03 | disposition home or self-care (01) ==
LOC: ED 23:36 → ERH 04-09 01:43 → 3RSO 04-09 02:53
PROVIDERS: ADMIT Internal Medicine Nephrology; ATTEND Internal Medicine Nephrology
DX: R55 Syncope and collapse (principal); D35.2 Benign neoplasm of pituitary gland; G40.909 Epilepsy, unspecified, not intractable, without status epilepticus; G93.0 Cerebral cysts; I10 Essential (primary) hypertension; Q04.0 Congenital malformations of corpus callosum; Z79.82 Long term (current) use of aspirin
CPT/HCPCS: 36415; 70450; 70551; 80053; 80061; 80175; 81001; 82948; 83036; 83735; 84443; 84484; 85025; 93005; 95812; 97161; 99285; G0378; G0480; G8978; G8979; G8980; J7030